=== PATIENT | male | born 1965 | race Caucasian/White ===

== ENCOUNTER 2020-12-19 07:47 | Outpatient (REF) | payer OTHER, SELFPAY ==
--- NOTE | ~2020-12-19 | US_ITS ---
EXAMINATION: US RETROPERITONEAL LIMITED (RENAL ONLY) CLINICAL INFORMATION: Calculus of kidney. COMPARISON: Renal ultrasound 10/26/2019 and 04/13/2019. X-ray abdomen KUB 02/07/2016. TECHNIQUE: Real-time imaging of the kidneys. FINDINGS: RIGHT KIDNEY: 12.0 x 6.4 x 6.4 cm (SAG x AP x TRV). The kidney is normal in size, contour, and echogenicity. Renal cortical thickness is normal. No hydronephrosis. There are at least 4 anechoic cysts. The largest cyst in the upper pole measures 1.8 x 2.0 x 1.9 cm. LEFT KIDNEY: 13.0 x 5.1 x 7.5 cm (SAG x AP x TRV). The kidney is normal in size, contour, and echogenicity. No focal parenchymal lesions. There is an echogenic stone in the lower pole measuring 0.3 x 0.3 cm. Mild cortical thinning and moderate hydronephrosis is noted. Right ureteral jet is demonstrated; left is not. US/US renal BI IMPRESSION: Bilateral simple renal cysts. Bilateral nonobstructive echogenic calculi in the lower pole without caliectasis. However, there is moderate left-sided hydronephrosis, likely chronic with mild cortical thinning.
== END 2020-12-19 07:48 | disposition home or self-care (01) ==
LOC: HO.US 07:47
PROVIDERS: PCP Internal Medicine; Visit Provider Urology
DX: N20.0 Calculus of kidney (principal)
CPT/HCPCS: 76775

== ENCOUNTER → 2021-01-02 14:33 | Outpatient (BNVA) | payer OTHER, SELFPAY | PROVIDERS: Visit Provider Urology | DX: N20.0 Calculus of kidney (principal); N28.1 Cyst of kidney, acquired; R82.994 Hypercalciuria | CPT/HCPCS: 99212 ==

== ENCOUNTER 2021-10-19 07:59 | Outpatient (REF) | payer OTHER, SELFPAY ==
--- NOTE | ~2021-10-19 | US_ITS ---
EXAMINATION: US RETROPERITONEAL LIMITED (RENAL ONLY) CLINICAL INFORMATION: Calculus of kidney. COMPARISON: Renal ultrasound 12/19/2020 and 10/26/2019. X-ray KUB abdomen 02/07/2016 and 01/03/2016. TECHNIQUE: Real-time imaging of the kidneys. FINDINGS: RIGHT KIDNEY: 12.2 x 7.1 x 5.2 cm (SAG x AP x TRV). The kidney is normal in size, contour, and echogenicity. Renal cortical thickness is normal. There are several stable small right renal cysts. Largest measures 2.3 x 2.5 x 2.2 cm in the upper pole. There is a 3 mm echogenic density with twinkle artifact in the lower pole suggestive of a stone. No hydronephrosis. LEFT KIDNEY: 12.7 x 5.9 x 5.9 cm (SAG x AP x TRV). The kidney is normal in size, contour, and echogenicity. Renal cortical thickness is normal. There is severe left hydronephrosis. There is left renal cortical thinning suggesting long-standing obstruction. There is a 3 mm echogenic density in the lower pole questionable for a stone. No focal parenchymal lesions. US/US renal BI IMPRESSION: Severe chronic left hydronephrosis similar to previous exams. Small small bilateral renal stones. Small right renal cysts.
== END 2021-10-19 08:00 | disposition home or self-care (01) ==
LOC: HO.US 07:59
PROVIDERS: Visit Provider Urology
DX: N20.0 Calculus of kidney (principal)
CPT/HCPCS: 76775

== ENCOUNTER → 2022-01-02 14:41 | Outpatient (BNVA) | payer OTHER, SELFPAY | PROVIDERS: PCP Internal Medicine; Visit Provider Urology | DX: N20.0 Calculus of kidney (principal); R82.994 Hypercalciuria; R82.992 Hyperoxaluria | CPT/HCPCS: 99212 ==

== ENCOUNTER 2022-12-17 07:56 | Outpatient (REF) | payer OTHER, SELFPAY ==
--- NOTE | ~2022-12-17 | US_ITS ---
EXAMINATION: US RETROPERITONEAL LIMITED (RENAL ONLY) CLINICAL INFORMATION: Calculus of kidney. COMPARISON: Ultrasound retroperitoneal limited (renal only) 10/19/2021 and 12/19/2020. Nuclear medicine renal study 02/13/2017. TECHNIQUE: Real-time imaging of the kidneys. FINDINGS: RIGHT KIDNEY: 11.5 x 5.7 x 6.2 cm (SAG x AP x TRV). The kidney is normal in size, contour, and echogenicity. Renal cortical thickness is normal. No hydronephrosis. Multiple simple cysts. No follow-up imaging is recommended. 0.3 cm nonobstructing calculus in the lower pole. LEFT KIDNEY: 14.2 x 5.9 x 5.8 cm (SAG x AP x TRV). Severe chronic hydronephrosis without measurable parenchyma. No visible mass. No visible nephrolithiasis. US/US renal BI IMPRESSION: 3 mm nonobstructing calculus in the lower right kidney. Chronic severe hydronephrosis of the left kidney with parenchymal atrophy.
== END 2022-12-17 07:57 | disposition home or self-care (01) ==
LOC: HO.US 07:56
PROVIDERS: PCP Internal Medicine; Visit Provider Urology
DX: N20.0 Calculus of kidney (principal)
CPT/HCPCS: 76775

== ENCOUNTER 2023-01-01 08:39 | Outpatient (AMB) | payer OTHER, SELFPAY ==
--- NOTE | 2023-01-01 08:41 | MHC.OFFVIS ---
Intake Intake Visit Reasons: 1Y US(set) Intake Note: Patient is Present for Follow Up US Urology Medication: No longer taking Potassium Antibiotic Allergies: None Blood Thinners: None Pharmacy: [facility] Allergies tamsulosin [From FLOMAX] Allergy (Severe, Verified 12/27/21 13:13) ANGIOEDEMA [facility] Medical History Acquired stricture of ureter Bilateral kidney stones Bilateral nephrolithiasis Decreased renal function Hypercalciuria Hyperoxaluria Unspecified hydronephrosis Urinary tract infection, site not specified Results AMB Urinalysis, Automated UA Leukoctes 0 Baldomero/uL Last Edit by REJI Dorado on 01/01/23 08:56 UA Nitrite Negative Last Edit by Emilia Guzmán Nicolle on 01/01/23 08:56 UA Urobilinogen 0.2 mg/dL Last Edit by Emilia Guzmán A on 01/01/23 08:56 UA Protein 0 mg/dL Last Edit by Emilia Guzmán Nicolle on 01/01/23 08:56 UA pH 7.0 Last Edit by Emilia Guzmán A on 01/01/23 08:56 UA Blood 0 Yunier/uL Last Edit by Emilia Guzmán Nicolle on 01/01/23 08:56 UA Specific [place] 1.015 Last Edit by Emilia Guzmán A on 01/01/23 08:56 UA Ketone Negative Last Edit by REJI Dorado on 01/01/23 08:56 UA Bilirubin 0 mg/dL Last Edit by Emilia Guzmán Nicolle on 01/01/23 08:56 UA Glucose 0 mg/dL Last Edit by Emilia Guzmán A on 01/01/23 08:56 Assessment & Plan Assessment & Plan Orders: Orders AMB Urinalysis Automated Today Z13.9 - Encounter for screening, unspecified Coding
== END 2023-01-01 12:29 | disposition left against medical advice (07) ==
PROVIDERS: Visit Provider Urology
DX: Z13.9 Encounter for screening, unspecified (principal)

== ENCOUNTER → 2023-01-01 08:39 | Outpatient (BNVA) | payer OTHER, SELFPAY | PROVIDERS: Visit Provider Urology | DX: Z13.9 Encounter for screening, unspecified (principal) | CPT/HCPCS: 81003 ==

== ENCOUNTER 2023-03-14 15:08 | Outpatient (AMB) | payer OTHER, SELFPAY ==
--- NOTE | 2023-03-14 15:08 | MHC.OFFVIS ---
Intake Intake Visit Reasons: 1y/US Intake Note: Patient is Present for Telephone Follow Up Ultrasound Urology Med: none Antibiotic Allergy: none Blood Thinner: none Allergies tamsulosin [From FLOMAX] Allergy (Severe, Verified 12/27/21 13:13) ANGIOEDEMA Medication List - Last Reconciled 03/14/23 by Rey Torres MD indapamide 1.25 mg PO QAM 90 days paroxetine HCl 40 mg PO DAILY paroxetine HCl 20 mg PO DAILY potassium citrate ER 20 mEq (2 x 10 mEq (1,080 mg)) PO BID 90 days rosuvastatin 20 mg PO BEDTIME HPI HPI Comments History of Present Illness Details Naseem is a very pleasant male. He is a patient of Dr Valencia. He is seen for the following urologic conditions. - nephrolithiasis - bilateral renal cysts Telemedicine Evaluation 15 min Consultation [employer] Cielo Video attempted Stable ultrasound Continue yearly evaluation Continue indapamide and potassium citrate. Medications refilled Nephrolithiasis/Urolithiasis:? Small stone on right 3 mm Continue with indapamide and potassium citrate ? The patient previously had kidney stones whose composition w?06/24 , calcium oxalate - monohydrate, calcium oxalate - dihydrate.? Laboratory investigations include?09/25 creatinine 1.34.? 24 Hour urine evaluation?04/28 , Low Urine volume < 2.0 liters, Hypercalciuria (> 200mg), High Sodium (> 100mEq), High oxalate > 30mg, Low citrate < 400 ?09/25 , Low Urine volume < 2.0 liters, Low calcium < 200, High Citrate, Low Oxalate < 30, High Sodium (> 100mEq) - high sodium, 1.5 L volume.? Prior treatment(s) include?04/28 USR right with embedded stones.? Prior imaging includes?08/25 , a renal ultrasound, showing radiodense stone(s), 3mm in Right renal pelvis ?02/24 , a renal ultrasound, 2 stones on the right side 4mm and 8mm ?03/28 , a renal ultrasound right 2 stones with symptoms 8mm/9mm ?06/26 MRI left hydro with thinning ?09/25 , a renal ultrasound, 5 mm stone right, left hydronephrosis with atrophy ?04/29 , a renal ultrasound, 5 mm stone lower pole right, left marked hydronephrosis with atrophy ?10/27 , a renal ultrasound, 3mm right, left atrophy - 11/28 renal ultrasound 3 mm left, mild left atrophy, mild hydronephrosis - 12/29 renal ultrasound 3 mm right, left atrophy - 12/30 renal ultrasound 3 mm right stone, left atrophy ? Current therapeutic plan will be?to continue with imaging surveillance.? Hydronephrosis/Hydroureter:? Hydronephrosis was diagnosed?through routine imaging.?09/23 , with diuretic renogram R 85: L 15 - delay on left more prominent ?01/24 , with diuretic renogram R93: L 7 - delay progressive.? Diagnosis based on imaging and findings?Intrinsic ureteric? [facility] Medical History Hyperoxaluria Hypercalciuria Decreased renal function Unspecified hydronephrosis Acquired stricture of ureter Urinary tract infection, site not specified Bilateral kidney stones Bilateral nephrolithiasis Review of Systems Const All systems reviewed & are unremarkable except as noted in HPI and below Reports no additional complaints Resp Reports no additional complaints GI Reports no additional complaints Reports as per HPI Musc Reports no additional complaints Physical Exam Telemedicine evaluation Appropriate responses Regular breathing rate and rhythm HEENT Head: Yes normal to inspection Ears: hearing grossly normal bilaterally Eyes General: appearance normal, both eyes and all related structures Neck Neck: Yes normal visual inspection Chest Chest palpation & inspection: normal inspection of the chest Resp Effort & Inspection: normal respiratory effort and able to speak in complete sentences Assessment & Plan Assessment & Plan (1) Hypercalciuria: Code(s): R82.994 - Hypercalciuria (2) Bilateral nephrolithiasis: Code(s): N20.0 - Calculus of kidney Plan Twelve month follow-up Orders: Orders US renal BI 364 Days N20.0 - Calculus of kidney Medications: Refilled indapamide 1.25 mg PO QAM 90 tabs 3RF 90 days N20.0 - Calculus of kidney potassium citrate ER two times a day with meals 20 mEq (2 x 10 mEq (1,080 mg)) PO BID 360 tabs 3RF 90 days N20.0 - Calculus of kidney Patient Instructions: Imaging studies, laboratory and physical exam results were discussed and reviewed in detail. No major barriers to patient understanding were identified. An opportunity to ask questions regarding the treatment plan was provided. All questions were answered. The patient expressed understanding and agreement with the above treatment plan. The patient is aware they should contact our office by phone for worsening of their current condition or the appearance of new urologic symptoms. Compliance is encouraged with any medications and followup testing that is ordered. It is a privilege to participate in the urologic care of your patient. If you have any questions or concerns regarding treatment for the above conditions, or other urologic issues, please do not hesitate to contact me. The office telephone contact is [phone]. This note is constructed using voice recognition software. While every effort has been made to ensure accuracy biologist aide errors may have been included. Yours sincerely, Dr Rey Torres MD, [facility] - Urology Providers of Expert, Compassionate Care for the Genitourinary System Telehealth Telehealth Location of provider rendering services: practice address Location of patient: address on file Patient Identification confirmed using: Name, : Yes Telehealth method: voice only Patient verbally consented to treatment: Yes Patient verbally consented to billing insurance company: Yes Patient informed of any privacy concerns related to visit: Yes Coding Level of Care Code Tele Est Pt Level 4 (98008) Diagnoses Hypercalciuria R82.994 Bilateral nephrolithiasis N20.0
== END 2023-03-14 15:56 | disposition home or self-care (01) ==
LOC: HO.HUSH 15:08
PROVIDERS: PCP Internal Medicine; Visit Provider Urology
DX: R82.994 Hypercalciuria (principal); N20.0 Calculus of kidney
CPT/HCPCS: 99214

== ENCOUNTER → 2023-03-14 15:08 | Outpatient (BNVA) | payer OTHER, SELFPAY | PROVIDERS: PCP Internal Medicine; Visit Provider Urology ==

== ENCOUNTER 2024-03-08 07:43 | Outpatient (REF) | payer OTHER, SELFPAY ==
--- NOTE | ~2024-03-08 | US_ITS ---
CLINICAL HISTORY: N20.0 - Calculus of kidney US renal with Color Doppler Comparison: US/SR - US RENAL BI - 12/17/2022 08:10 AM EDT US/SR - US RENAL BI - 10/19/2021 08:20 AM EDT Findings: Right kidney normal size and echotexture, 11.5 cm length. No hydronephrosis or nephrolithiasis. Normal color flow. Renal cortical cysts as follows: Midpole with thin septation measuring 1.1 x 1.2 x 1.4 cm previously measuring 1.0 x 1.0 x 1.4 cm. Benign renal cortical cyst upper pole measuring 1.8 x 1.3 x 1.6 cm. Benign renal cortical cyst upper pole measuring 2.7 x 2.8 x 2.6 cm and 1.1 x 0.9 x 1.5 cm. Left kidney measures 13.4 cm length. This previously measured 14.2 cm. Normal color flow. Stable severe chronic hydronephrosis with renal cortical thinning. No nephrolithiasis or renal masses identified Impression: 1. Stable chronic hydronephrosis left kidney with marked renal cortical thinning. 2. Benign renal cortical cysts on the right are incidental. The complex cyst with thin internal septations midpole right kidney minimally changed in size. 3. No nephrolithiasis demonstrated. This document has been electronically signed by: José Miguel Yun MD on 03/08/2024 13:00:45
--- OUTSIDE RECORDS SUMMARY | 2024-03-08 07:45 | XMS_ITS | Continuity of Care Document ---
Author Organization [facility] Address [address] [place] [address]- Care Team Providers Care Automotive Parts Salesperson Name Role Phone Annie WALKER, Fortunato Edwards Primary Care Physician [phone] Encounter [facility] Date(s): 01/27/24 - 02/26/24 [facility] [address] [place], [place] [address] Encounter Type: Triage Allergies, Adverse Reactions, Alerts Substance Criticality Severity Reaction Reaction Severity Status vancomycin Unable to assess criticality Persistent Mild Hives Active Bee Stings Unable to assess criticality Persistent Severe anaphylaxis Active Flomax throat swelling Acti ve Immunizations Given and Recorded Vaccine Date Status Refusal Reason RSV vaccine preF3, recombinant 01/31/24 Recorded influenza virus vaccine, inactivated 01/31/24 Rusty rded influenza virus vaccine, inactivated 02/05/23 Rusty rded influenza virus vaccine, inactivated 01/16/22 Give n influenza virus vaccine, inactivated 03/13/21 Give n influenza virus vaccine, inactivated 02/09/20 Give n influenza virus vaccine, inactivated 12/18/18 Give n pneumococcal 20-valent conjugate vaccine 02/19/23 Recorded SARS-CoV-2(COVID-19)mRNA-LNP vac([id number]) 02/19/23 Recorded [id number] 12y+ bivalent booster vax 01/16/22 Given SARS-CoV-2 (COVID-19) mRNA BNT-162b2 vac 03/13/21 Given SARS-CoV-2 (COVID-19) mRNA BNT-162b2 vac 06/10/20 Recorded SARS-CoV-2 (COVID-19) mRNA BNT-162b2 vac 05/02/20 Recorded zoster vaccine, inactivated 08/11/20 Recorded diphtheria/tetanus/pertussis, acel(DTaP) 08/01/17 Recorded Medications betamethasone-clotrimazole 0.05%-1% topical cream See Instructions, APPLY CREAM TOPICALLY TWICE DAILY, # 45 Gm, 3 Refills, Maintenance, 01/20/24 7:59:00 AM EST, [facility], 22, APPLY CREAM TOPICALLY TWICE DAILY, 170, cm, 01/17/24 8:21:00 EST, Height, 78.7, kg, 07/08/23 11:59:00 EDT, Dry Weight Start Date: 01/20/24 Status: Ordered Quantity: 45.0 Unit: g Repeat number: 1 Crestor 20 mg oral tablet 1 tablet = 20 mg, By Mouth, Daily, # 90 tablet, 3 Refills, Maintenance, 02/13/24 9:25:00 AM EST, Tablet, [facility], Partial fill upon patient request if the prescription is for a schedule II opioid drug., 170, cm, 02/13/24 9:02:00 EST, Height, 78.7, kg, 07/08/23 11:59:00 EDT, Dry Weight Start Date: 02/13/24 Status: Ordered Quantity: 90.0 Unit: tablet Repeat number: 4 EPINEPHrine 0.3 mg injectable solution See Instructions, INJECT CONTENTS OF 1 PEN NEEDED FOR ALLERGIC REACTION, # 2 each, 1 Refills, Maintenance, 02/13/24 9:24:00 AM EST, [facility], 170, cm, 02/13/24 9:02:00 EST, Height, 78.7, kg, 07/08/23 11:59:00 EDT, Dry Weight Start Date: 02/13/24 Status: Ordered Quantity: 2.0 Unit: each Repeat number: 2 indapamide 1.25 mg oral tablet 1 tablet = 1.25 mg, By Mouth, Daily in AM, 0 Refills, Maintenance, 07/29/18 10:01:56 AM EDT Start Date: 07/29/18 Status: Ordered Repeat number: 1 Ventolin HFA 108 mcg/inh inhalation aerosol with adapter 2 puffs, Inhalation, Every 4 hours, PRN NEEDED FOR WHEEZING OR SHORTNESS OF BREATH, # 18 Gm, 2 Refills, Maintenance, 02/13/24 9:25:00 AM EST, [facility], 170, cm, 02/13/24 9:02:00 EST, Height, 78.7, kg, 07/08/23 11:59:00 EDT, Dry Weight Start Date: 02/13/24 Status: Ordered Quantity: 18.0 Unit: g Repeat number: 3 Problem List Condition Confirmation Course Effective Dates Status H ealth Status Informant Bee sting-induced anaphylaxis Confirmed Active Benign polyp of colon Confirmed Active Coronary artery calcification seen on CT scan Confirmed Active Cerebellar stroke Confirmed Active Chronic kidney disease stage 3 Confirmed Active CKD (chronic kidney disease), stage III Confirmed Active Cough Confirmed Active Chronic daily headache Confirmed Active Displacement of lumbar intervertebral disc without myelopathy Confirmed Active Eruption Confirmed Active Headache Confirmed Active HTN (hypertension) Confirmed Active Patellar bursitis Confirmed Active Kidney stone Confirmed Active Low back pain Confirmed Active Major depressive disorder Confirmed Active Lumps on the skin Confirmed Active Premature ejaculation Confirmed Active COPD type A Confirmed Active Shoulder joint pain Confirmed Active Tobacco user Confirmed Active Palmar wart Confirmed Active Social History Social History Type Response Smoking Status 10 or more cigarette s (1/2 pack or more)/day in last 30 days entered on: 07/29/18 Sex Sex Representation Male (finding) Patient Care team information Care Team Personnel Name: Annie WALKER, Fortunato Edwards Position: [facility] Physician - Primary Care Member Role: PCP Address: [address] [place] [id number] Telecom: Name: Robert Toscano RN Position: [facility] RN Member Role: Primary Care Nurse Care Team Related Persons Name: DOUGLAS RUGGIERO Name: ZHOU FLORES Insurance Providers Guarantor name: CECILLE COLE Health Plan Information #: 1 Payer: [employer] [place] Member Number: NA Policy Number: NA Group Number: NA
== END 2024-03-08 07:44 | disposition home or self-care (01) ==
LOC: HO.US 07:43
PROVIDERS: PCP Internal Medicine; Visit Provider Urology
DX: N20.0 Calculus of kidney (principal)
CPT/HCPCS: 76775

== ENCOUNTER → 2024-03-08 07:45 | Outpatient (BNV) | payer OTHER, SELFPAY | PROVIDERS: PCP Internal Medicine; Visit Provider Radiology Diagnostic Radiology | DX: N20.0 Calculus of kidney (principal) | CPT/HCPCS: 76775 ==

== ENCOUNTER 2024-03-16 09:27 | Outpatient (AMB) | payer OTHER, SELFPAY ==
--- NOTE | 2024-03-16 09:31 | MHC.OFFVIS ---
Intake Visit Reasons: 1Y Ultrasound(set) Intake Note: Patient is Present for 1Y Follow Up Ultrasound Urology Med:INDAPAMIDE Antibiotic Allergy: NONE Blood Thinner: none Event Planning Intern Required: No Allergies tamsulosin [From FLOMAX] Allergy (Severe, Verified 03/16/24 09:32) ANGIOEDEMA HPI Comments Details: Naseem is a very pleasant male. He is a patient of Dr Valencia. He is seen for the following urologic conditions. - nephrolithiasis - bilateral renal cysts Stable ultrasound Continue yearly evaluation Continue indapamide Nephrolithiasis/Urolithiasis:? Small stone on right 3 mm Continue with indapamide and potassium citrate ? The patient previously had kidney stones whose composition w?06/24 , calcium oxalate - monohydrate, calcium oxalate - dihydrate.? Laboratory investigations include?09/25 creatinine 1.34.? 24 Hour urine evaluation?04/28 , Low Urine volume < 2.0 liters, Hypercalciuria (> 200mg), High Sodium (> 100mEq), High oxalate > 30mg, Low citrate < 400 ?09/25 , Low Urine volume < 2.0 liters, Low calcium < 200, High Citrate, Low Oxalate < 30, High Sodium (> 100mEq) - high sodium, 1.5 L volume.? Prior treatment(s) include?04/28 USR right with embedded stones.? Prior imaging includes?08/25 , a renal ultrasound, showing radiodense stone(s), 3mm in Right renal pelvis ?02/24 , a renal ultrasound, 2 stones on the right side 4mm and 8mm ?03/28 , a renal ultrasound right 2 stones with symptoms 8mm/9mm ?06/26 MRI left hydro with thinning ?09/25 , a renal ultrasound, 5 mm stone right, left hydronephrosis with atrophy ?04/29 , a renal ultrasound, 5 mm stone lower pole right, left marked hydronephrosis with atrophy ?10/27 , a renal ultrasound, 3mm right, left atrophy - 11/28 renal ultrasound 3 mm left, mild left atrophy, mild hydronephrosis - 12/29 renal ultrasound 3 mm right, left atrophy - 12/30 renal ultrasound 3 mm right stone, left atrophy - 01/31 renal ultrasound, Stable chronic hydronephrosis left kidney with marked renal cortical thinning ? Current therapeutic plan will be?to continue with imaging surveillance.? Hydronephrosis/Hydroureter:? Hydronephrosis was diagnosed?through routine imaging.?09/23 , with diuretic renogram R 85: L 15 - delay on left more prominent ?01/24 , with diuretic renogram R93: L 7 - delay progressive.? Diagnosis based on imaging and findings?Intrinsic ureteric? [facility] Medical History Hyperoxaluria Hypercalciuria Decreased renal function Unspecified hydronephrosis Acquired stricture of ureter Urinary tract infection, site not specified Bilateral kidney stones Bilateral nephrolithiasis Review of Systems Const Denies chills and Denies fever(s) Card Reports no additional complaints and Denies syncope Resp Denies cough GI Denies abdominal pain and Denies heartburn Reports as per HPI and Denies change in libido Neuro Denies syncope Psych Denies change in libido Endo Denies change in libido Physical Exam Const General: cooperative, healthy appearing, comfortable and no acute distress Orientation/consciousness: patient oriented x3 HEENT Face and sinus: Yes normal facial exam Mouth: moist mucous membranes Neck Neck: Yes normal visual inspection, Yes full ROM and Yes trachea midline Chest Chest palpation & inspection: normal inspection of the chest Resp Effort & Inspection: normal respiratory effort, able to speak in complete sentences and no respiratory distress GI Inspection: Yes normal to inspection Back/Spine/Pelvis Cervical Spine: normal cervical lordosis Thoracic/Lumbar Spine: thoracic and lumbar spine normal to inspection Skin General skin exam: no rashes or lesions noted Neuro General: patient oriented x3, gait normal, tone normal and moves all extremities Extrem General: Yes normal to inspection and Yes capillary refill normal Assessment & Plan Assessment & Plan (1) Bilateral nephrolithiasis: Code(s): N20.0 - Calculus of kidney Category: Medical (2) Hypercalciuria: Code(s): R82.994 - Hypercalciuria Category: Medical Plan 12 month follow-up imaging and lab work Orders: Orders Prostate Specific Antigen 364 Days R82.992 - Hyperoxaluria Creatinine 364 Days R82.992 - Hyperoxaluria US renal BI 12 Months R82.992 - Hyperoxaluria Patient Instructions: Imaging studies, laboratory and physical exam results were discussed and reviewed in detail. No major barriers to patient understanding were identified. An opportunity to ask questions regarding the treatment plan was provided. All questions were answered. The patient expressed understanding and agreement with the above treatment plan. The patient is aware they should contact our office by phone for worsening of their current condition or the appearance of new urologic symptoms. Compliance is encouraged with any medications and followup testing that is ordered. It is a privilege to participate in the urologic care of your patient. If you have any questions or concerns regarding treatment for the above conditions, or other urologic issues, please do not hesitate to contact me. The office telephone contact is [phone]. This note is constructed using voice recognition software. While every effort has been made to ensure accuracy game breeding farm manager errors may have been included. Yours sincerely, Dr Rey Torres MD, [facility] - Urology Providers of Expert, Compassionate Care for the Genitourinary System Coding Level of Care Code Est Pt Level 4 (17090) Diagnoses Bilateral nephrolithiasis N20.0 Hypercalciuria R82.994
== END 2024-03-16 09:51 | disposition home or self-care (01) ==
PROVIDERS: PCP Internal Medicine; Visit Provider Urology
DX: N20.0 Calculus of kidney (principal); R82.994 Hypercalciuria
CPT/HCPCS: 99214

== ENCOUNTER → 2024-03-16 09:27 | Outpatient (BNVA) | payer OTHER, SELFPAY | PROVIDERS: PCP Internal Medicine; Visit Provider Urology | DX: N20.0 Calculus of kidney (principal); R82.994 Hypercalciuria | CPT/HCPCS: 99212 ==

== ENCOUNTER 2024-09-02 09:21 | Outpatient (REF) | payer OTHER, SELFPAY ==
--- NOTE | ~2024-09-02 | US_ITS ---
EXAMINATION: US RETROPERITONEAL LIMITED (RENAL ONLY) CLINICAL INFORMATION: Calculus of kidney. COMPARISON: Numerous priors, most recently 03/08/2024. TECHNIQUE: Real-time imaging of the kidneys. FINDINGS: RIGHT KIDNEY: 12.2 x 5.8 x 5.5 cm (SAG x AP x TRV). The kidney is normal in size, contour, and echogenicity. Renal cortical thickness is normal. No suspicious parenchymal lesions. There are several simple cysts present, largest in the upper pole measuring 2.9 x 2.8 x 2.7 cm. Minimally complicated lower pole cyst is present with a thin septation (equivalent to a Bosniak 2 cyst) measuring 1.1 x 1.1 x 1.9 cm (unchanged). There is a lower pole nonobstructing calculus measuring 4 mm. LEFT KIDNEY: 14.0 x 6.7 x 6.6 cm (SAG x AP x TRV). Severe chronic hydronephrosis is evident, similar to the prior examination. There is renal cortical thinning. No nephrolithiasis or suspicious renal lesions. US/US renal BI IMPRESSION: 1. 4 mm nonobstructing right lower pole calculus. 2. Stable cysts in the right kidney with no suspicious features. Minimally complicated right lower pole cyst with thin septation is unchanged. This is equivalent to a Bosniak 2 cyst. 3. Stable chronic severe hydronephrosis with diffuse renal cortical thinning involving the left kidney. Electronically signed by: Hai Cardoso MD 09/02/2024 09:52 AM EDT
--- OUTSIDE RECORDS SUMMARY | 2024-09-02 10:18 | XMS_ITS | Encounter Summary ---
Author Organization [facility] Address [address] [facility] [address] [place] [address] Phone Care Team Providers Care Apartment House Manager Name Role Phone Fortunato Valencia MD Primary Care Provider [phone] Encounter Details Date Type Department Care Team (Late st Contact Info) Description 09/05/2020 Orders Only [facility] [address] [place] [address] Solo Mckeon MD [address] [facility] [address] [place] [address] Stage 3a chronic kidney disease (HCC); Hypertensive chronic kidney disease stage 3 Social History Tobacco Use Types Packs/Day Years Used Date Smoking Tobacco: Every Day Cigarettes Smokeless Tobacco: Never Alcohol Use Standard Drinks/Week Comments Never 0 (1 standard drink = 0.6 oz pur e alcohol) Sex and Gender Information Value Date Recorded Sex Assigned at Not on file Legal Sex Male 4:58 PM EST Gender Identity Not on file Sexual Orientation Not on file documented as of this encounter Plan of Treatment Not on file documented as of this encounter Procedures Procedure Name Priority Date/Time Associated Diagnosis Comments PROTEIN / CREATININE RATIO, URINE Routine 10/02/2020 8:47 AM EDT Stage 3a chronic kidney disease (HCC) Hypertensive chronic kidney disease stage 3 VITAMIN D 25 HYDROXY Routine 10/02/2020 8:47 AM EDT Stage 3a chronic kidney disease (HCC) Hypertensive chronic kidney disease stage 3 URINALYSIS WITH MICROSCOPIC Routine 10/02/2020 8:47 AM EDT Stage 3a chronic kidney disease (HCC) Hypertensive chronic kidney disease stage 3 URIC ACID Routine 10/02/2020 8:47 AM EDT Stage 3a chronic kidney disease (HCC) Hypertensive chronic kidney disease stage 3 PTH, INTACT Routine 10/02/2020 8:47 AM EDT Stage 3a chronic kidney disease (HCC) Hypertensive chronic kidney disease stage 3 RENAL FUNCTION PANEL Routine 10/02/2020 8:47 AM EDT Stage 3a chronic kidney disease (HCC) Hypertensive chronic kidney disease stage 3 documented in this encounter Results * Uric acid (10/02/2020 8:47 AM EDT) Uric Acid 4.2 (2.6-8.7) MG/DL [facility] Comment: Testing performed or reported by [facility], a Service of [facility], [address] [place] [id number] Arlene Crowell MD, Cartography Teacher Blood specimen (specimen) Venous blood / Unknown 10/02/2020 8:47 AM EDT 10/02/2020 8:49 AM EDT us Solo Mckeon MD LAB BLOOD ORDERABLES Final Resu lt [facility] * (ABNORMAL) Renal function panel (10/02/2020 8:47 AM EDT) Glucose 90 (70-99) MG/DL [facility] BUN 17 (6-20) MG/DL [facility] Creatinine 1.3(H) (0.7-1.2) MG/DL [facility] Sodium 138 (133-145) MMOL/L [facility] Potassium 4.5 (3.6-5.2) MMOL/L [facility] Chloride 104 (98-107) MMOL/L [facility] Bicarbonate (CO2) 26 (22-29) MMOL/L [facility] Anion Gap 8 (4-17) [facility] Albumin 4.6 (3.4-4.8) GM/DL [facility] Calcium 9.7 (8.6-10.5) MG/DL [facility] Phosphorus, Serum 2.6 (2.5-4.5) MG/DL [facility] Est GFR Non 59 ML/MIN/1.7 3 M2 [facility] Comment: Creatinine based estimated glomerular filtration rate (eGFR) is calculated using the Chronic Kidney Disease Epidemiology Collaboration (CKD-EPI). The CKD-EPI creatinine equation has not been validated in children (<18 years), women or in some racial or ethnic subgroups other than Caucasians and Americans. EST GFR 69 ML/MIN/1.7 3 M2 [facility] Comment: Creatinine based estimated glomerular filtration rate (eGFR) is calculated using the Chronic Kidney Disease Epidemiology Collaboration (CKD-EPI). The CKD-EPI creatinine equation has not been validated in children (<18 years), women or in some racial or ethnic subgroups other than Caucasians and Americans. Testing performed or reported by [facility], a Service of [address] [address] Arlene Crowell MD, Cartography Teacher Blood specimen (specimen) Venous blood / Unknown 10/02/2020 8:47 AM EDT 10/02/2020 8:49 AM EDT Solo Mckeon MD LAB BLOOD ORDERABLES Final Resu lt Performing Organization Address [email or web address]] de Phone Number [facility] * PTH, intact (10/02/2020 8:47 AM EDT) PTH, Intact 44 (15-65) PG/ML [facility] Comment: Testing performed or reported by [facility], a Service of [facility], [address] [place] [id number] Arlene Crowell MD, Cartography Teacher Blood specimen (specimen) Venous blood / Unknown 10/02/2020 8:47 AM EDT 10/02/2020 8:49 AM EDT Solo Mckeon MD LAB BLOOD ORDERABLES Final Resu lt Performing Organization Address City/[facility] Co de Phone Number [facility] * Vitamin D 25 hydroxy (10/02/2020 8:47 AM EDT) Vitamin D, 25-Hydroxy 44.6 (20-50) NG/ML [facility] Comment: Testing performed or reported by [facility], a Service of [facility], [address] [place] [id number] Arlene Crowell MD, Cartography Teacher Blood specimen (specimen) Venous blood / Unknown 10/02/2020 8:47 AM EDT 10/02/2020 8:49 AM EDT Result [facility] us Solo Mckeon MD LAB BLOOD ORDERABLES Final Resu lt Performing Organization Address City/[facility] Co de Phone Number [facility] * Urine Protein / creatinine ratio (10/02/2020 8:47 AM EDT) Protein/Creatin e Ratio 0.08 (0-0.2) [facility] Protein, Urine 7 MG/DL [facility] Creatinine, Urine 91.5 MG/DL [facility] Comment: Testing performed or reported by [facility], a Service of [address] [address] Arlene Crowell MD, Cartography Teacher Urine specimen (specimen) Urine specimen obtained by clean catch procedure / Unknown 10/02/2020 8:47 AM EDT 10/02/2020 8:49 AM EDT Result [facility] us Solo Mckeon MD LAB URINE ORDERABLES Final Resu lt Performing Organization Address [email or web address] de Phone Number [facility] * Urinalysis with microscopic (10/02/2020 8:47 AM EDT) Appearance LIGHT YELLOW [facility] Comment:CLEAR Specific [place] 1.018 (1.002-1. 030) [facility] pH Urine 6.0 (5.0-8.0) [facility] Albumin, Urine NEGATIVE (NEG) [facility] Glucose, Ur NEGATIVE (NEG) [facility] Ketones, Urine NEGATIVE (NEG) [facility] Bilirubin Urine NEGATIVE (NEG) [facility] Hemoglobin Presence in Urine NEGATIVE (NEG) [facility] Nitrite, Urine NEGATIVE (NEG) [facility] Leukocyte Esterase Urine NEGATIVE (NEG) [facility] Urobilinogen Urine NORMAL (NORM) MG/DL [facility] WBC, Urine 1 (0-5) /HPF [facility] RBC, Urine NONE SEEN (0-3) /HPF [facility] Mucus, Urine SLIGHT /LPF [facility] Comment: Testing performed or reported by [facility], a Service of [facility], [address] [place] [id number] Arlene Crowell MD, Cartography Teacher Urine specimen (specimen) Urine specimen obtained by clean catch procedure / Unknown 10/02/2020 8:47 AM EDT 10/02/2020 8:49 AM EDT us Solo Mckeon MD LAB URINE ORDERABLES Final Resu lt [facility] documented in this encounter Visit Diagnoses Diagnosis Stage 3a chronic kidney disease (HCC) Hypertensive chronic kidney disease stage 3 documented in this encounter Care Teams Apartment House Manager Relationship Specialty Start Date End Date Fortunato Valencia MD [address] [place] [address] PCP - General 03/20/20 documented as of this encounter
== END 2024-09-02 09:22 | disposition home or self-care (01) ==
LOC: HO.US 09:21
PROVIDERS: Visit Provider Urology
DX: N20.0 Calculus of kidney (principal); N13.30 Unspecified hydronephrosis
CPT/HCPCS: 76775

== ENCOUNTER → 2024-09-02 09:23 | Outpatient (BNV) | payer OTHER, SELFPAY | PROVIDERS: Visit Provider Radiology Diagnostic Radiology | DX: N20.0 Calculus of kidney (principal) | CPT/HCPCS: 76775 ==

== ENCOUNTER 2024-10-07 08:02 | Outpatient (AMB) | payer OTHER, SELFPAY ==
--- NOTE | 2024-10-07 08:02 | MHC.OFFVIS ---
Intake Visit Reasons: US results Intake Note: Patient is Present for Follow Up Ultrasound Imaging done : 09/02/2024 Urology Med:INDAPAMIDE Antibiotic Allergy: NONE Blood Thinner: none Accounts Payable Bookkeeper Required: No Accompanied by: Self / Same As Patient Allergies tamsulosin (From FLOMAX) Allergy (Severe, Verified 10/07/24 08:03) ANGIOEDEMA HPI Comments Details: Naseem is a very pleasant male. He is a patient of Dr Valencia. He is seen for the following urologic conditions. - nephrolithiasis - bilateral renal cysts Telemedicine Evaluation 15 min Consultation [employer] [facility] Video Continue indapamide Has small stone right side Occasional pain Twelve month follow-up Nephrolithiasis/Urolithiasis:? Small stone on right 4 mm Continue with indapamide and potassium citrate ? The patient previously had kidney stones whose composition w?06/24 , calcium oxalate - monohydrate, calcium oxalate - dihydrate.? Laboratory investigations include?09/25 creatinine 1.34.? 24 Hour urine evaluation?04/28 , Low Urine volume < 2.0 liters, Hypercalciuria (> 200mg), High Sodium (> 100mEq), High oxalate > 30mg, Low citrate < 400 ?09/25 , Low Urine volume < 2.0 liters, Low calcium < 200, High Citrate, Low Oxalate < 30, High Sodium (> 100mEq) - high sodium, 1.5 L volume.? Prior treatment(s) include?04/28 USR right with embedded stones.? Prior imaging includes?08/25 , a renal ultrasound, showing radiodense stone(s), 3mm in Right renal pelvis ?02/24 , a renal ultrasound, 2 stones on the right side 4mm and 8mm ?03/28 , a renal ultrasound right 2 stones with symptoms 8mm/9mm ?06/26 MRI left hydro with thinning ?09/25 , a renal ultrasound, 5 mm stone right, left hydronephrosis with atrophy ?04/29 , a renal ultrasound, 5 mm stone lower pole right, left marked hydronephrosis with atrophy ?10/27 , a renal ultrasound, 3mm right, left atrophy - 11/28 renal ultrasound 3 mm left, mild left atrophy, mild hydronephrosis - 12/29 renal ultrasound 3 mm right, left atrophy - 12/30 renal ultrasound 3 mm right stone, left atrophy - 01/31 renal ultrasound, Stable chronic hydronephrosis left kidney with marked renal cortical thinning - 09/01 renal US, left atrophy, right small stone 4mm ? Current therapeutic plan will be?to continue with imaging surveillance.? Hydronephrosis/Hydroureter:? Hydronephrosis was diagnosed?through routine imaging.?09/23 , with diuretic renogram R 85: L 15 - delay on left more prominent ?01/24 , with diuretic renogram R93: L 7 - delay progressive.? Diagnosis based on imaging and findings?Intrinsic ureteric? [facility] Medical History Hyperoxaluria Hypercalciuria Decreased renal function Unspecified hydronephrosis Acquired stricture of ureter Urinary tract infection, site not specified Bilateral kidney stones Bilateral nephrolithiasis Review of Systems Const All systems reviewed & are unremarkable except as noted in HPI and below Reports no additional complaints Resp Reports no additional complaints GI Reports no additional complaints Reports as per HPI Musc Reports no additional complaints Physical Exam Telemedicine evaluation Appropriate responses Regular breathing rate and rhythm HEENT Head: Yes normal to inspection Ears: hearing grossly normal bilaterally Eyes General: appearance normal, both eyes and all related structures Neck Neck: Yes normal visual inspection Chest Chest palpation & inspection: normal inspection of the chest Resp Effort & Inspection: normal respiratory effort and able to speak in complete sentences Telehealth Telehealth Telehealth Platform: [facility] Location of provider rendering services: practice address Location of patient: address on file Patient Identification confirmed using: Name, : Yes Telehealth method: voice only Patient verbally consented to treatment: Yes Patient verbally consented to billing insurance company: Yes Patient informed of any privacy concerns related to visit: Yes Minutes spent on Phone/Video with Pt.: 15 Assessment & Plan Assessment & Plan (1) Acquired stricture of ureter: Code(s): N13.5 - Crossing vessel and stricture of ureter without hydronephrosis Category: Medical (2) Hypercalciuria: Code(s): R82.994 - Hypercalciuria Category: Medical (3) Bilateral nephrolithiasis: Code(s): N20.0 - Calculus of kidney Category: Medical Plan Twelve month follow-up renal imaging Orders: Orders US renal BI 12 Months R82.994 - Hypercalciuria Medications: Refilled indapamide 1.25 mg PO QAM 90 tabs 3RF 90 days N20.0 - Calculus of kidney Patient Instructions: This note is constructed using voice recognition software. While every effort has been made to ensure accuracy hearth feeder errors may have been included. Imaging studies, laboratory and physical exam results were discussed and reviewed in detail. No major barriers to patient understanding were identified. An opportunity to ask questions regarding the treatment plan was provided. All questions were answered. The patient expressed understanding and agreement with the above treatment plan. The patient is aware they should contact our office by phone for worsening of their current condition or the appearance of new urologic symptoms. Compliance is encouraged with any medications and followup testing that is ordered. It is a privilege to participate in the urologic care of your patient. If you have any questions or concerns regarding treatment for the above conditions, or other urologic issues, please do not hesitate to contact me. The office telephone contact is [phone]. Sincerely, Dr Rey Torres MD, [facility] - Urology Compassionate Specialist Care for the Genitourinary System Coding Level of Care Code Tele Est Pt Level 3 (80736) Complex EM visit Add On G2211 Diagnoses Acquired stricture of ureter N13.5 Hypercalciuria R82.994 Bilateral nephrolithiasis N20.0
--- OUTSIDE RECORDS SUMMARY | 2024-10-07 08:07 | XMS_ITS | Encounter Summary ---
Author Organization [facility] Address [address] [facility] [address] [place] [address] Phone Care Team Providers Care Loss Prevention And Safety Manager Name Role Phone Fortunato Valencia MD Primary Care Provider [phone] Encounter Details Date Type Department Care Team (Late st Contact Info) Description 09/05/2020 Orders Only [facility] [address] [place] [address] Solo Mckeon MD [address] [facility] [address] [place] [address] Stage 3a chronic kidney disease [...] AM EDT) Uric Acid 4.2 (2.6-8.7) MG/DL [facility] Comment: Testing performed or reported by [facility], a Service of [facility], [address] [place] [id number] Arlene Crowell MD, Scoop Driver Blood specimen (specimen) Venous blood / Unknown 10/02/2020 8:47 AM EDT 10/02/2020 8:49 AM EDT us Solo Mckeon MD LAB BLOOD ORDERABLES Final Resu lt [facility] * (ABNORMAL) Renal function panel (10/02/2020 8:47 AM EDT) Glucose 90 (70-99) MG/DL [facility] BUN 17 (6-20) MG/DL [facility] Creatinine 1.3(H) (0.7-1.2) MG/DL [facility] Sodium 138 (133-145) MMOL/L [facility] Potassium 4.5 (3.6-5.2) MMOL/L [facility] Chloride 104 (98-107) MMOL/L [facility] Bicarbonate (CO2) 26 (22-29) MMOL/L [facility] Anion Gap 8 (4-17) [facility] Albumin 4.6 (3.4-4.8) GM/DL [facility] Calcium 9.7 (8.6-10.5) MG/DL [facility] Phosphorus, Serum 2.6 (2.5-4.5) MG/DL [facility] Est GFR Non 59 ML/MIN/1.7 3 M2 [facility] Comment: Creatinine based estimated glomerular filtration rate (eGFR) is calculated using the Chronic Kidney Disease Epidemiology Collaboration (CKD-EPI). The CKD-EPI creatinine equation has not been validated in children (<18 years), women or in some racial or ethnic subgroups other than Caucasians and Americans. EST GFR 69 ML/MIN/1.7 3 M2 [facility] Comment: Creatinine based estimated glomerular filtration rate (eGFR) is calculated using the Chronic Kidney Disease Epidemiology Collaboration (CKD-EPI). The CKD-EPI creatinine equation has not been validated in children (<18 years), women or in some racial or ethnic subgroups other than Caucasians and Americans. Testing performed or reported by [facility], a Service of [address] [address] Arlene Crowell MD, Scoop Driver Blood specimen (specimen) Venous blood / Unknown 10/02/2020 8:47 AM EDT 10/02/2020 8:49 AM EDT Solo Mckeon MD LAB BLOOD ORDERABLES Final Resu lt Performing Organization Address [facility] de Phone Number [facility] * PTH, intact (10/02/2020 8:47 AM EDT) PTH, Intact 44 (15-65) PG/ML [facility] Comment: Testing performed or reported by [facility], a Service of [facility], [address] [place] [id number] Arlene Crowell MD, Scoop Driver Blood specimen (specimen) Venous blood / Unknown 10/02/2020 8:47 AM EDT 10/02/2020 8:49 AM EDT Solo Mckeon MD LAB BLOOD ORDERABLES Final Resu lt Performing Organization Address City/[facility] Co de Phone Number [facility] * Vitamin D 25 hydroxy (10/02/2020 8:47 AM EDT) Vitamin D, 25-Hydroxy 44.6 (20-50) NG/ML [facility] Comment: Testing performed or reported by [facility], a Service of [facility], [address] [place] [address] Arlene Crowell MD, Scoop Driver Blood specimen (specimen) Venous blood / Unknown 10/02/2020 8:47 AM EDT 10/02/2020 8:49 AM EDT Result [facility] us Solo Mckeon MD LAB BLOOD ORDERABLES Final Resu lt Performing Organization Address City/[facility] Co de Phone Number [facility] * Urine Protein / creatinine ratio (10/02/2020 8:47 AM EDT) Protein/Creatin e Ratio 0.08 (0-0.2) [facility] Protein, Urine 7 MG/DL [facility] Creatinine, Urine 91.5 MG/DL [facility] Comment: Testing performed or reported by [facility], a Service of [address] [address] Arlene Crowell MD, Scoop Driver Urine specimen (specimen) Urine specimen obtained by clean catch procedure / Unknown 10/02/2020 8:47 AM EDT 10/02/2020 8:49 AM EDT Result [facility] us Solo Mckeon MD LAB URINE ORDERABLES Final Resu lt Performing Organization Address [facility] de Phone Number [facility] * Urinalysis with microscopic (10/02/2020 8:47 AM EDT) Appearance LIGHT YELLOW [facility] Comment:CLEAR Specific [place] 1.018 (1.002-1. 030) [facility] pH Urine 6.0 (5.0-8.0) [facility] Albumin, Urine NEGATIVE (NEG) [facility] Glucose, Ur NEGATIVE (NEG) [facility] Ketones, Urine NEGATIVE (NEG) [facility] Bilirubin Urine NEGATIVE (NEG) [facility] Hemoglobin Presence in Urine NEGATIVE (NEG) [facility] Nitrite, Urine NEGATIVE (NEG) [facility] Leukocyte Esterase Urine NEGATIVE (NEG) [facility] Urobilinogen Urine NORMAL (NORM) MG/DL [facility] WBC, Urine 1 (0-5) /HPF [facility] RBC, Urine NONE SEEN (0-3) /HPF [facility] Mucus, Urine SLIGHT /LPF [facility] Comment: Testing performed or reported by [facility], a Service of [facility], [address] [place] [id number] Arlene Crowell MD, Scoop Driver Urine specimen (specimen) Urine specimen obtained by clean catch procedure / Unknown 10/02/2020 8:47 AM EDT 10/02/2020 8:49 AM EDT us Solo Mckeon MD LAB URINE ORDERABLES Final Resu lt [facility] documented in this encounter Visit Diagnoses Diagnosis Stage 3a chronic kidney disease (HCC) Hypertensive chronic kidney disease stage 3 documented in this encounter Care Teams Loss Prevention And Safety Manager Relationship Specialty Start Date End Date Fortunato Valencia MD [address] [place] [address] PCP - General 03/20/20 documented as of this encounter
== END 2024-10-07 09:26 | disposition home or self-care (01) ==
LOC: HO.HUSH 08:02
PROVIDERS: Visit Provider Urology
DX: N13.5 Crossing vessel and stricture of ureter without hydronephrosis (principal); R82.994 Hypercalciuria; N20.0 Calculus of kidney
CPT/HCPCS: 99213; G2211

== ENCOUNTER 2025-03-09 13:26 | Outpatient (REF) | payer OTHER, SELFPAY ==
--- OUTSIDE RECORDS SUMMARY | 2025-03-09 14:51 | XMS_ITS | Encounter Summary ---
Author Organization [facility] Address [address] [facility] [address] [place] [address] Phone Care Team Providers Care Home Help Aide Name Role Phone Fortunato Valencia MD Primary Care Provider [phone] Encounter Details Date Type Department Care Team (Late st Contact Info) Description 09/05/2020 Orders Only [facility] [address] [place] [address] Solo Mckeon MD [address] [facility] [address] [place] [address] Stage 3a chronic kidney disease [...] AM EDT) Uric Acid 4.2 (2.6-8.7) MG/DL [facility] Comment: Testing performed or reported by [facility], a Service of [facility], [address] [place] [id number] Arlene Crowell MD, Lineman Blood specimen (specimen) Venous blood / Unknown 10/02/2020 8:47 AM EDT 10/02/2020 8:49 AM EDT us Solo Mckeon MD LAB BLOOD ORDERABLES Final Resu lt [facility] * (ABNORMAL) Renal function panel (10/02/2020 8:47 AM EDT) Glucose 90 (70-99) MG/DL [facility] BUN 17 (6-20) MG/DL [facility] Creatinine 1.3(H) (0.7-1.2) MG/DL [facility] Sodium 138 (133-145) MMOL/L [facility] Potassium 4.5 (3.6-5.2) MMOL/L [facility] Chloride 104 (98-107) MMOL/L [facility] Bicarbonate (CO2) 26 (22-29) MMOL/L [facility] Anion Gap 8 (4-17) [facility] Albumin 4.6 (3.4-4.8) GM/DL [facility] Calcium 9.7 (8.6-10.5) MG/DL [facility] Phosphorus, Serum 2.6 (2.5-4.5) MG/DL [facility] Est GFR Non 59 ML/MIN/1.7 3 M2 [facility] Comment: Creatinine based estimated glomerular filtration rate (eGFR) is calculated using the Chronic Kidney Disease Epidemiology Collaboration (CKD-EPI). The CKD-EPI creatinine equation has not been validated in children (<18 years), women or in some racial or ethnic subgroups other than Caucasians and Americans. EST GFR 69 ML/MIN/1.7 3 M2 [facility] Comment: Creatinine based estimated glomerular filtration rate (eGFR) is calculated using the Chronic Kidney Disease Epidemiology Collaboration (CKD-EPI). The CKD-EPI creatinine equation has not been validated in children (<18 years), women or in some racial or ethnic subgroups other than Caucasians and Americans. Testing performed or reported by [facility], a Service of [address] [id number] Arlene Crowell MD, Lineman Blood specimen (specimen) Venous blood / Unknown 10/02/2020 8:47 AM EDT 10/02/2020 8:49 AM EDT Solo Mckeon MD LAB BLOOD ORDERABLES Final Resu lt Performing Organization Address [facility] de Phone Number [facility] * PTH, intact (10/02/2020 8:47 AM EDT) PTH, Intact 44 (15-65) PG/ML [facility] Comment: Testing performed or reported by [facility], a Service of [facility], [address] [place] [address] Arlene Crowell MD, Lineman Blood specimen (specimen) Venous blood / Unknown 10/02/2020 8:47 AM EDT 10/02/2020 8:49 AM EDT Solo Mckeon MD LAB BLOOD ORDERABLES Final Resu lt Performing Organization Address City/[facility] Co de Phone Number [facility] * Vitamin D 25 hydroxy (10/02/2020 8:47 AM EDT) Vitamin D, 25-Hydroxy 44.6 (20-50) NG/ML [facility] Comment: Testing performed or reported by [facility], a Service of [facility], [address] [place] [id number] Arlene Crowell MD, Lineman Blood specimen (specimen) Venous blood / Unknown 10/02/2020 8:47 AM EDT 10/02/2020 8:49 AM EDT Result [facility] us Solo Mckeon MD LAB BLOOD ORDERABLES Final Resu lt Performing Organization Address City/[facility] Co de Phone Number [facility] * Urine Protein / creatinine ratio (10/02/2020 8:47 AM EDT) Protein/Creatin e Ratio 0.08 (0-0.2) [facility] Protein, Urine 7 MG/DL [facility] Creatinine, Urine 91.5 MG/DL [facility] Comment: Testing performed or reported by [facility], a Service of [address] [address] Arlene Crowell MD, Lineman Urine specimen (specimen) Urine specimen obtained by clean catch procedure / Unknown 10/02/2020 8:47 AM EDT 10/02/2020 8:49 AM EDT Result [facility] us Solo Mckeon MD LAB URINE ORDERABLES Final Resu lt Performing Organization Address [facility] de Phone Number [facility] * Urinalysis with microscopic (10/02/2020 8:47 AM EDT) Appearance LIGHT YELLOW [facility] Comment:CLEAR Specific [place] 1.018 (1.002-1. 030) [facility] pH Urine 6.0 (5.0-8.0) [facility] Albumin, Urine NEGATIVE (NEG) [facility] Glucose, Ur NEGATIVE (NEG) [facility] Ketones, Urine NEGATIVE (NEG) [facility] Bilirubin Urine NEGATIVE (NEG) [facility] Hemoglobin Presence in Urine NEGATIVE (NEG) [facility] Nitrite, Urine NEGATIVE (NEG) [facility] Leukocyte Esterase Urine NEGATIVE (NEG) [facility] Urobilinogen Urine NORMAL (NORM) MG/DL [facility] WBC, Urine 1 (0-5) /HPF [facility] RBC, Urine NONE SEEN (0-3) /HPF [facility] Mucus, Urine SLIGHT /LPF [facility] Comment: Testing performed or reported by [facility], a Service of [facility], [address] [place] [id number] Arlene Crowell MD, Lineman Urine specimen (specimen) Urine specimen obtained by clean catch procedure / Unknown 10/02/2020 8:47 AM EDT 10/02/2020 8:49 AM EDT us Solo Mckeon MD LAB URINE ORDERABLES Final Resu lt [facility] documented in this encounter Visit Diagnoses Diagnosis Stage 3a chronic kidney disease (HCC) Hypertensive chronic kidney disease stage 3 documented in this encounter Care Teams Home Help Aide Relationship Specialty Start Date End Date Fortunato Valencia MD [address] [place] [address] PCP - General 03/20/20 documented as of this encounter
--- OUTSIDE RECORDS SUMMARY | 2025-03-09 14:51 | XMS_ITS | Clinical Summary ---
Author Organization [facility] Address [address] [place] [id number] Care Team Providers Care Artificial Limb Fitter Name Role Phone Fortunato Valencia MD Primary Care Provider [phone] Allergies Active Allergy Reactions Criticality Noted Date Comments Tamsulosin Swelling High 07/01/2020 Throat swelling Vancomycin Hives Medium 07/01/2020 Medications indapamide (LOZOL) 1.25 MG tablet Take 1 tablet by mouth 1 (one) time each day Active potassium citrate (UROCIT-K) 10 MEQ (1080 MG) CR tablet Take 1 tablet by mouth 2 (two) times a day Active rosuvastatin (CRESTOR) 20 MG tablet Take 20 mg by mouth 1 (one) time each day Active PARoxetine (PAXIL) 20 MG tablet Take 20 mg by mouth 1 (one) time each day in the morning Active Active Problems Problem Noted Date Diagnosed Date Shoulder joint pain 07/01/2020 Calcification of coronary artery 07/01/2020 Overview (07/01/2020): seen on ct scan Stage 3a chronic kidney disease 06/20/2020 Essential hypertension 06/20/2020 Renal stone 06/20/2020 Hypertensive chronic kidney disease stage 3 Social History Tobacco Use Types Packs/Day Years Used Date Smoking Tobacco: Every Day Cigarettes Smokeless Tobacco: Never Tobacco Cessation:Ready to Q uit: Not Asked; Counseling Given: No Alcohol Use Standard Drinks/Week Comments Never 0 (1 standard drink = 0.6 oz pur e alcohol) Sex and Gender Information Value Date Recorded Sex Assigned at Not on file Legal Sex Male 4:58 PM EST Gender Identity Not on file Sexual Orientation Not on file Last Filed Vital Signs Vital Sign Reading Time Taken Comments Blood Pressure 120/74 09/27/2021 3:45 PM EDT Pulse 77 09/27/2021 3:45 PM EDT Temperature - - Respiratory Rate - - Oxygen Saturation - - Inhaled Oxygen Concentration - - Weight 81.6 kg (180 lb) 09/27/2021 3:45 PM EDT Height 170.2 cm (5' 7 ) 07/07/2020 12:42 PM EDT Body Mass Index 28.19 07/07/2020 12:42 PM EDT Plan of Treatment Health Maintenance Due Date Last Done Comments Pneumococcal Vaccine: 50+ Ye ars (1 of 2 - PCV) 11/06/1982 Colorectal Cancer Screening: Annual FOBT 11/06/2012 Colorectal Cancer Screening: Colonoscopy 11/06/2012 Colorectal Cancer Screening: Sigmoidoscopy 11/06/2012 Influenza Vaccine (#1) 2024 Hepatitis B Vaccine Aged Out No longe r eligible based on patient's age to complete this topic Insurance [address] [place] [id number] [facility] [address] [place] [phone] [facility] [employer] Care Teams Artificial Limb Fitter Relationship Specialty Start Date End Date Fortunato Valencia MD [address] [place] [address] PCP - General 03/20/20
[2025-03-09 14:52] LABS: Estimated Glomerular Filt Rate 57
[2025-03-09 15:11] LABS: Prostate Specific Antigen 0.36 ng/mL (<0.05-4.0)
== END 2025-03-09 13:27 | disposition home or self-care (01) ==
LOC: HO.LAB 13:26
PROVIDERS: Visit Provider Urology
DX: Z12.5 Encounter for screening for malignant neoplasm of prostate (principal); R82.992 Hyperoxaluria
CPT/HCPCS: 36415; 82565; 84153